=== PATIENT | male | born 1950 | race Caucasian/White ===

== ENCOUNTER 2018-09-23 11:55 | Inpatient (IN) | payer OTHER, MEDICARE ==
[~2018-09-23] VITALS: Ht 177.8 cm; Wt 101.0 kg
[2018-09-23] MEDS ORDERED: ASPIRIN 81 MG TABLET CHEW PO ONE (12:30)
[2018-09-23 12:56] LABS: BASOPHILS # (AUTO) 0.03 x10^3/uL (0-0.1); BASOPHILS % (AUTO) 1 % (0-1); EOSINOPHILS # (AUTO) 0.05 x10^3/uL (0-0.4); EOSINOPHILS % (AUTO) 1 % (1-7); LYMPHOCYTES # (AUTO) 2.08 x10^3/uL (1-3.4); LYMPHOCYTES % (AUTO) 34 % (22-44); MD NO; MEAN CORPUSCULAR HGB CONC 32.7 g/dL (33.2-36.2); MEAN CORPUSCULAR VOLUME 85.5 fL (81-97); MEAN PLATELET VOLUME 10.3 fL (7.4-10.4); MONOCYTES # (AUTO) 0.41 x10^3/uL (0.2-0.8); MONOCYTES % (AUTO) 7 % (2-9); NEUTROPHILS # (AUTO) 3.61 x10^3/uL (1.8-6.8); NEUTROPHILS % (AUTO) 59 % (42-75); PLATELET COUNT 246 x10^3/uL (130-400); RED BLOOD COUNT 4.74 x10^6/uL (4.38-5.82); RED CELL DISTRIBUTION WIDTH 13.7 % (9.4-14.8)
[2018-09-23 13:07] LABS: CALCIUM 9.1 mg/dL (8.5-10.1); CHLORIDE 108 mmol/L (98-107)
[2018-09-23 13:15] LABS: ALANINE AMINOTRANSFERASE 31 U/L (12-78); ALKALINE PHOSPHATASE 100 U/L (45-117); ANION GAP 10 mmol/L (5-15); BILIRUBIN,TOTAL 0.5 mg/dL (0.2-1.0); CREATININE 1.02 mg/dL (0.7-1.3); TOTAL PROTEIN 7.2 g/dL (6.4-8.2); TROPONIN I < 0.015 ng/mL (0.000-0.045)
[2018-09-23] MEDS ORDERED: SODIUM CHLORIDE FLUSH 10ML SYR IVF PRN (14:30)
[2018-09-23 16:28] VITALS: BP 136/73
[2018-09-23] MEDS ORDERED: LABETALOL 5MG/ML, 20ML IVPush PRN (16:30)
[2018-09-23] MEDS ORDERED: POLYETHYLENE GLYCOL 17 GM PACKET PO PRN (16:30)
[2018-09-23] MEDS ORDERED: NITROGLYCERIN 0.4 MG BOTTLE (25 TABS) SL PRN (16:30)
[2018-09-23] MEDS ORDERED: NITROGLYCERIN 0.4 MG/SPRAY SL PRN (16:30)
[2018-09-23] MEDS ORDERED: BISACODYL 10 MG SUPP PR PRN (16:30)
[2018-09-23] MEDS ORDERED: hydrALAzine 20 MG/ML, 1ML IVPush PRN (16:30)
[2018-09-23] MEDS ORDERED: ACETAMINOPHEN 325 MG TABLET PO PRN (16:30)
[2018-09-23] MEDS ORDERED: morphine SULFATE 10 MG/ML, 1ML IVPush PRN (16:30)
[2018-09-23] MEDS ORDERED: DOCUSATE 100 MG CAPSULE PO PRN (16:30)
[2018-09-23 17:48] LABS: TROPONIN I < 0.015 ng/mL (0.000-0.045)
[2018-09-23 18:24] LABS: HEMOGLOBIN A1C 5.9 % (4.2-6.3)
[2018-09-23 19:57] VITALS: BP 162/77
[2018-09-23 22:36] LABS: TROPONIN I < 0.015 ng/mL (0.000-0.045)
[2018-09-24 02:46] VITALS: BP 128/76
[2018-09-24 05:27] LABS: BASOPHILS # (AUTO) 0.05 x10^3/uL (0-0.1); BASOPHILS % (AUTO) 1 % (0-1); EOSINOPHILS # (AUTO) 0.11 x10^3/uL (0-0.4); EOSINOPHILS % (AUTO) 2 % (1-7); LYMPHOCYTES # (AUTO) 2.52 x10^3/uL (1-3.4); LYMPHOCYTES % (AUTO) 43 % (22-44); MD NO; MEAN CORPUSCULAR HEMOGLOBIN 28.1 pg (27.5-34.5); MEAN CORPUSCULAR VOLUME 85.2 fL (81-97); MONOCYTES % (AUTO) 8 % (2-9); NEUTROPHILS # (AUTO) 2.75 x10^3/uL (1.8-6.8); NEUTROPHILS % (AUTO) 46 % (42-75); PLATELET COUNT 221 x10^3/uL (130-400); RED BLOOD COUNT 4.39 x10^6/uL (4.38-5.82); RED CELL DISTRIBUTION WIDTH 13.7 % (9.4-14.8)
[2018-09-24 05:39] LABS: ANION GAP 7 mmol/L (5-15); CALCIUM 8.7 mg/dL (8.5-10.1); CHLORIDE 111 mmol/L (98-107); CHOLESTEROL, TOTAL 184 mg/dL (140-239); CREATININE 0.98 mg/dL (0.7-1.3); TRIGLYCERIDES 122 mg/dL (50-200); VLDL CHOLESTEROL 24 mg/dL (0-25)
[2018-09-24 05:41] LABS: CHOL/HDL RATIO 4.3; HDL CHOL % 23 % (26-37); HDL CHOLESTEROL (DIRECT) 43 mg/dL (40-60); LDL CHOLESTEROL,CALCULATED 117 mg/dL (54-169); LDL/HDL RATIO 2.7 (0.5-3.0)
[2018-09-24 07:03] VITALS: BP 156/93
[2018-09-24] MEDS ORDERED: REGADENOSON 0.4 MG/5 ML SYRINGE ONE (10:33)
[2018-09-24] MEDS ORDERED: SODIUM CHLORIDE 0.9% 1,000 ML IV ONE (13:41)
[2018-09-24] MEDS: ASPIRIN 81 MG TABLET CHEW PO SCH (14:00)
[2018-09-24 14:13] VITALS: BP 127/76
[2018-09-24 18:34] VITALS: BP 127/75
[2018-09-24] MEDS: ATORVASTATIN 80 MG TABLET PO SCH (20:46)
[2018-09-25 02:25] VITALS: BP 131/80
[2018-09-25] MEDS: ASPIRIN 81 MG TABLET CHEW PO SCH (06:22)
[2018-09-25 08:01] VITALS: BP 145/87
[2018-09-25] MEDS ORDERED: FENTANYL PF 100 MCG/2ML ONE (09:52)
[2018-09-25] MEDS ORDERED: TICAGRELOR 90 MG TABLET ONE (09:52)
[2018-09-25] MEDS ORDERED: VERAPAMIL 2.5 MG/ML, 2ML ONE (09:52)
[2018-09-25] MEDS ORDERED: MIDAZOLAM 1 MG/ML, 5ML ONE (09:52)
[2018-09-25] MEDS ORDERED: BIVALIRUDIN 250 MG ONE (09:52)
[2018-09-25] MEDS ORDERED: HEPARIN 1,000 UNITS/ML, 10ML ONE (09:52)
[2018-09-25] MEDS ORDERED: NITROGLYCERIN 5 MG/ML, 10ML ONE (09:52)
[2018-09-25] MEDS ORDERED: LIDOCAINE-MPF 1%, 5ML ONE (09:53)
[2018-09-25] MEDS: SODIUM CHLORIDE 0.9% 1,000 ML IV SCH ×2 (12:38→19:42)
[2018-09-25] MEDS: ISOSORBIDE MONONITRATE ER 30 MG TABLET PO SCH (12:43)
[2018-09-25 14:41] VITALS: BP 108/67
[2018-09-25 20:03] VITALS: BP 118/57
[2018-09-25] MEDS ORDERED: DIPHENHYDRAMINE 50 MG CAPSULE PO PRN (21:00)
[2018-09-25] MEDS ORDERED: IBUPROFEN 200 MG TABLET PO ONE (21:00)
[2018-09-25] MEDS: ATORVASTATIN 80 MG TABLET PO SCH (21:13)
[2018-09-26 02:00] VITALS: BP 106/63
[2018-09-26] MEDS: SODIUM CHLORIDE 0.9% 1,000 ML IV SCH ×2 (03:42→12:06)
[2018-09-26] MEDS: ASPIRIN 81 MG TABLET CHEW PO SCH (06:26)
[2018-09-26 07:05] VITALS: BP 124/77
[2018-09-26] MEDS: ISOSORBIDE MONONITRATE ER 30 MG TABLET PO SCH (09:39)
[2018-09-26] MEDS: CLOPIDOGREL 75 MG TABLET PO SCH (09:39)
[2018-09-26 12:55] VITALS: BP 144/77
[2018-09-26 20:34] VITALS: BP 145/74
[2018-09-26] MEDS: ATORVASTATIN 80 MG TABLET PO SCH (20:52)
[2018-09-27 01:46] VITALS: BP 128/72
[2018-09-27] MEDS: ASPIRIN 81 MG TABLET CHEW PO SCH (06:12)
[2018-09-27 06:34] VITALS: BP 127/72
[2018-09-27] MEDS ORDERED: ASPI-515 PO (08:41)
[2018-09-27] MEDS ORDERED: CLOP75TA PO (08:41)
[2018-09-27] MEDS ORDERED: ISOS30TA8 PO (08:41)
[2018-09-27] MEDS ORDERED: ATOR-2 PO (08:41)
[2018-09-27] MEDS: CLOPIDOGREL 75 MG TABLET PO SCH (09:01)
[2018-09-27] MEDS: ISOSORBIDE MONONITRATE ER 30 MG TABLET PO SCH (09:01)
== END 2018-09-27 10:05 | disposition home or self-care (01) | DRG 287 ==
LOC: ED 14:22 → INTOOBSV 14:23 → EDIP 14:23 → OBSVTOIN 14:23 → ED 14:35 → 5SO 16:17 → DCLOUNGE 09-27 09:40
PROVIDERS: ADMIT Hospitalist; ATTEND Hospitalist
PROC: 4A023N7 Measurement of Cardiac Sampling and Pressure, Left Heart, Percutaneous Approach (ICD-10-PCS; principal; 2018-09-23)
PROC: B2111ZZ Fluoroscopy of Multiple Coronary Arteries using Low Osmolar Contrast (ICD-10-PCS; 2018-09-23)
DX: I25.110 Atherosclerotic heart disease of native coronary artery with unstable angina pectoris (principal); E11.9 Type 2 diabetes mellitus without complications; E66.01 Morbid (severe) obesity due to excess calories; E78.5 Hyperlipidemia, unspecified; F12.90 Cannabis use, unspecified, uncomplicated; I10 Essential (primary) hypertension; R00.1 Bradycardia, unspecified; N40.0 Benign prostatic hyperplasia without lower urinary tract symptoms; Z85.46 Personal history of malignant neoplasm of prostate; Z87.891 Personal history of nicotine dependence; Z68.31 Body mass index [BMI] 31.0-31.9, adult; Z79.899 Other long term (current) drug therapy; Z79.84 Long term (current) use of oral hypoglycemic drugs
CPT/HCPCS: 36415; 71045; 78452; 80048; 80053; 80061; 83036; 83735; 84100; 84443; 84484; 85025; 93005; 93017; 93306; 93458; 99156; 99157; 99285; C1769; C1894; G0378; J0583; J1644; J2250; J2785; J3010; A9502; C1887; C9898; J7030; Q9967